=== PATIENT | female | born 1940 | race Caucasian/White ===

== ENCOUNTER 2017-06-07 12:24 | Emergency (ER) | payer MEDICARE ==
[~2017-06-07 12:24] MED LIST: ALBU8.5H2 INHALATION; BECL8.7A6 IH; CYCL5TAB PO; GABA-502 PO; LISI10TA PO; METF-496 PO; VENL100T3 PO
[2017-06-07 12:49] VITALS: BP 119/80; PULSE 119; RESP 21; O2SAT 97
--- NOTE | 2017-06-07 12:49 | ED.REPORT ---
HPI-Chest Pain 40 and Over Date of Service Jun 07, 2017 ED Provider: William Villarreal DO Pt is a 76 y/o female w/ a hx of DM, [place], HTN, asthma, presenting to the ED via EMS due to new-onset a-fib. The patient went to see her PCP today because she experiencing nausea and near-syncope with associated left arm pain and LOCKWOOD 5 days ago. She has also been experiencing SOB and cough which she attributes to the poor air quality. She was found to be in a-fib which she states she has never had before although review of old records indicates she has had 1 episode previously. Nursing Notes Stated Complaint: NEW ONSET OF AFIB Chief Complaint: Dysrhythmia/Cardiac Nursing Notes Reviewed: Yes Allergies: Coded Allergies: hydrocodone bitartrate (Verified Allergy, Severe, Anaphylaxis, 02/08/16) morphine (Verified Allergy, Intermediate, N/V, 02/08/16) Carbapenems (Verified Allergy, Unknown, 02/08/16) Cephalosporins (Verified Allergy, Unknown, 02/08/16) Penicillins (Verified Allergy, Unknown, 02/08/16) aztreonam (Verified Allergy, Unknown, 02/08/16) Scheduled Beclomethasone Dipropionate (Qvar) 8.7 Gm Aer.w.adap 8.7 GM IH BID Gabapentin (Gabapentin) 300 Mg Capsule 300 MG PO QID Lisinopril (Lisinopril) 10 Mg Tablet 10 MG PO DAILY Metformin ER (Metformin ER) 1,000 Mg Tablet 1,000 MG PO BIDAC Metoprolol Succinate ER (Metoprolol Succinate ER) 50 Mg Tab.er.24h 50 MG PO DAILY Venlafaxine (Venlafaxine) 100 Mg Tablet 100 MG PO BIDWM Warfarin Sodium (Warfarin Sodium) 5 Mg Tablet 5 MG PO DAILY Scheduled PRN Albuterol HFA (Proair HFA) 8.5 Gm Hfa.aer.ad 2 PUFFS INHALATION Q4H PRN PRN prn Cyclobenzaprine (Cyclobenzaprine) 5 Mg Tablet 5 MG PO TID PRN PRN Spasm General Time Seen by MD: 12:48 Chief Complaint Other (a-fib) Hx Obtained From: Patient, EMS Arrived By: Ambulance Sudden in Onset?: Yes Onset Occurred: 5 days ago Symptom Duration: Intermittent Severity: Current: No pain currently Severity: Maximum: No pain Recent Healthcare: No recent hospitalization, Recent doctor visit Similar Sx Previous: No Past Medical History Past Medical History [place] in 1996 Single prior pisode of a-fib Hypertension Asthma Hx pneumonia GERD Hx UTI Arthritis Diabetes Past Surgical History Partial thyroidectomy Tubal ligation Hysterectomy Abdominal hernia mesh Knee replacement bilaterally Left wrist Smoking History Former Smoker Social History Alcohol Use: Denies alcohol use Ambulatory Status Independent Review of Systems Constitutional: Reports: Weakness - generalized Respiratory: Reports: Non-productive cough, Shortness of breath GI: Reports: Nausea Musculoskeletal: Reports: Extremity pain Neurologic: Reports: Syncope (near) Complete sys rev & neg: except as marked. Physical Exam Initial Vital Signs Vital Signs (First) Date Time Temp Pulse Resp B/P Pulse Ox O2 Delivery O2 Flow Rate FiO2 06/07/17 12:49 36.2 119 21 119/80 97 Room Air Initial VS: Reviewed Head / Eyes: Atraumatic, Normocephalic ENT: Mucous membranes moist, Conjunctiva normal Neck: Full range of motion Extremities: Vascular intact, Neuro intact, No swelling, No tenderness Skin: Warm, Dry, No cyanosis Neurologic: Alert, Oriented, Nonfocal Psychiatric: Mood/affect normal, Behavior normal, Normal thought content General/Constitutional: Awake, Alert, No acute distress, Cooperative, Not toxic appearing Respiratory / Chest: Breath sounds NL, Breath sounds = bilat, No respiratory distress, No rales, No rhonchi, No wheezing Cardiovascular: Heart rate NL, Heart sounds NL, No gallop, No murmurs, No rubs , Cap refill not delayed, Peripheral circulation NL, Pulses = bilaterally Heart Rate / Rhythm: Positive: Irreg irregular rhythm Interpretation & Diagnostics Lab Results Interpretation Result Diagram: 06/07/17 1250 06/07/17 1250 Test 06/07/17 12:50 06/07/17 14:10 White Blood Count 6.9th/mm3 (3.8-10.1) Red Blood Count 4.23mil/mm3 (3.90-5.20) Hemoglobin 13.0g/dL (12.0-15.6) Hematocrit 39.0% (35.0-46.0) Mean Corpuscular Volume 92.2fL (81-100) Mean Corpuscular Hemoglobin 30.7pg (27.0-35.0) Mean Corpuscular Hemoglobin Concent 33.3% (32.0-37.0) Red Cell Distribution Width 13.3% (12.3-15.4) Platelet Count 213bil/L (150-400) Neutrophils (%) (Auto) 62.0% (40-74) Lymphocytes (%) (Auto) 25.2% (14-46) Monocytes (%) (Auto) 8.7% (4-12) Eosinophils (%) (Auto) 3.3% (0-5) Basophils (%) (Auto) 0.4% (0-3) Sodium Level 139mEq/L (134-144) Potassium Level 4.3mEq/L (3.5-5.2) Chloride Level 100mEq/L (97-108) Carbon Dioxide Level 23mmol/L (18-29) Blood Urea Nitrogen 12mg/dL (8-27) Creatinine 0.70mg/dL (0.57-1.00) Estimat Glomerular Filtration Rate 117mL/min (>59) Glucose Level 123mg/dL (60-99) Calcium Level 9.1mg/dL (8.5-10.1) Magnesium Level 1.6mg/dL (1.6-2.6) Total Bilirubin 0.2mg/dL (0.0-1.2) Aspartate Amino Transf (AST/SGOT) 18U/L (0-50) Alanine Aminotransferase (ALT/SGPT) 15U/L (0-32) Alkaline Phosphatase 86U/L (25-165) Troponin T < 0.010ug/L (0.0-0.011) Pro-B-Type Natriuretic Peptide 397.8pg/mL (0-738) Total Protein 7.0g/dL (6.4-8.4) Albumin 3.9g/dL (3.4-5.0) Hold Urine Received (Received) ECG Interpretation ECG Interpretation: A-fib rate 97 RBBB and LAFB Probable LVH Time: 13:48 Interpreted by: ED physician Normal ECG Interpretation: No acute ischemic changes X-Ray Chest Interpretation Chest Xray Interpretation: IMPRESSION: No acute cardiopulmonary disease. Dictated by: Haider Crowe M.D. on 06/07/2017 at 13:32 Approved by: Haider Crowe M.D. on 06/07/2017 at 13:32 View: Portable, 1 view Interpretation / Wet Read by: Interpret - Radiologist Re-Eval/Medical Decision Med Decision/Clinical Course Vinny's score of 2 indicating need for anticoagulation. Source of Hx: Old records Time of Eval: 14:12 Re-Evaluation/Progress Note: Pt rechecked. Feeling much better after HR decreased. Informed pt of plan for discharge. Pt understands and agrees with plan for discharge. F/U instructions and RTER warnings given. All questions addressed. Consultation : Referral / Consult Name: Ashley Wiggins Consulted With: Primary care physician Call Returned at: 15:11 Herpetology Teacher: Will see patient, Agrees with eval, Agrees with plan Note: Will see in f/u Counseled Regarding: Diagnosis, Lab results, Need for follow-up, When/why to return to ED Discharge & Departure Primary Impression: Atrial fibrillation Atrial fibrillation type: unspecified Qualified Code: I48.91 - Unspecified atrial fibrillation Disposition: Home Discharge Condition All VS Reviewed: Yes Condition: Stable Patient Instructions: A-fib (Atrial Fibrillation) (ED) Additional Instructions: You are in an abnormal heart rhythm called atrial fibrillation. This may be the cause of your symptoms. Given your history of hypertension and diabetes, it is recommended that you be started on anticoagulation therapy to prevent stroke. Return to the emergency department if you experience rapid heart palpitations, passing out, chest pain, shortness of breath, or for other concerning symptoms. Follow-up with your primary care provider in 2-3 days for a recheck and to further discuss your medications. We are starting you on a Rod called metoprolol as well as warfarin. You will need to have your warfarin level checked in the next few days. Referrals: Ashley Wiggins (PCP) Scribe Attestation Portions of this note were transcribed by Duglas Ladd. I, Dr. Villarreal personally performed the history, physical exam and medical decision-making; I reviewed and confirmed the accuracy of the information in the transcribed note. copies to: Ashley Wiggins Timothy S DO Jun 07, 2017 12:49 DUGLAS LADD Jun 07, 2017 12:57
[2017-06-07] MEDS ORDERED: Ondansetron 2 mg/mL 2 mL Inj IVPUSH ONE (13:00)
[2017-06-07] MEDS ORDERED: MeTOProlol 1 mg/mL 5 mL Inj IVPUSH ONE (13:00)
[2017-06-07 13:12] LABS: BASOPHILS % (AUTO) 0.4 % (0-3); EOSINOPHILS % (AUTO) 3.3 % (0-5); MONOCYTES % (AUTO) 8.7 % (4-12); Mean Corpuscular Hemoglobin 30.7 pg (27.0-35.0); Mean Corpuscular Volume 92.2 fL (81-100); Platelet Count 213 bil/L (150-400)
--- NOTE | 2017-06-07 13:34 | DRSVH ---
PROCEDURE: X-RAY CHEST ONE VIEW, PORTABLE ([id number]) INDICATIONS: 76 year-old female with dyspnea. TECHNIQUE: One view of the chest was acquired. COMPARISON: [facility], CR, XR ABD ACUTE SERIES 3VW, 05/17/2017, 9:43. [facility], CR, ABD ACUTE SERIES, 04/01/2014, 11:24. [facility], CR, CHEST 1VW (PORTABLE), , 21:26. FINDINGS: Surgical changes and devices: None. Lungs and pleura: No pleural effusions or pneumothorax. Lungs are clear. Mediastinum: Mediastinal contours appear normal. Mild cardiomegaly is unchanged. There is aortic at herosclerosis. Bones and chest wall: No suspicious bony lesions. Overlying soft tissues appear unremarkable. IMPRESSION: No acute cardiopulmonary disease. Dictated by: Haider Crowe M.D. on 06/07/2017 at 13:32 Approved by: Haider Crowe M.D. on 06/07/2017 at 13:32
[2017-06-07 13:43] LABS: TROPONIN T < 0.010 ug/L (0.0-0.011)
[2017-06-07 13:46] LABS: Magnesium 1.6 mg/dL (1.6-2.6)
[2017-06-07 14:10] VITALS: BP 116/84; PULSE 86; RESP 20; O2SAT 97
[2017-06-07] MEDS ORDERED: METO-369 PO (14:35)
[2017-06-07] MEDS ORDERED: WARF5TAB7 PO (14:35)
[2017-06-07 14:53] VITALS: BP_SYST 106; BP_SYST 111; BP_DIAS 55; BP_DIAS 62; PULSE 74; RESP 20; O2SAT 95
[2017-06-07 15:50] VITALS: BP 111/62; PULSE 74; RESP 20; O2SAT 95
== END 2017-06-07 15:50 | disposition home or self-care (01) ==
LOC: EDBD 12:24 → SED 12:24
DX: I48.91 Unspecified atrial fibrillation (principal); M79.602 Pain in left arm; I10 Essential (primary) hypertension; I25.2 Old myocardial infarction; E11.9 Type 2 diabetes mellitus without complications; J45.909 Unspecified asthma, uncomplicated; K21.9 Gastro-esophageal reflux disease without esophagitis; Z79.84 Long term (current) use of oral hypoglycemic drugs; Z79.01 Long term (current) use of anticoagulants; Z87.01 Personal history of pneumonia (recurrent); Z87.891 Personal history of nicotine dependence; Z88.0 Allergy status to penicillin; Z88.1 Allergy status to other antibiotic agents; Z88.5 Allergy status to narcotic agent; Z88.8 Allergy status to other drugs, medicaments and biological substances
CPT/HCPCS: 36415; 71010; 80053; 83735; 83880; 84484; 85025; 93005; 96374; 96375; 99285; G0463; J2405